=== PATIENT | female | born 1990 | race Caucasian/White ===

== ENCOUNTER 2020-04-22 08:11 | Day surgery (SDC) | payer OTHER ==
[2020-04-22] MEDS ORDERED: NEXIUM 24HR20 MG PO (09:24)
== END 2020-04-22 11:20 | disposition home or self-care (01) ==
LOC: AMB-ENDOS 08:11
PROVIDERS: ATTEND Surgery
DX: K29.60 Other gastritis without bleeding (principal); K44.9 Diaphragmatic hernia without obstruction or gangrene

== ENCOUNTER 2024-04-29 13:26 | Outpatient (CLI) | payer OTHER ==
[~2024-04-29 13:26] MED LIST: NEXIUM 24HR20 MG PO
== END 2024-04-29 13:27 | disposition home or self-care (01) ==
LOC: PRENATAL 13:26
PROVIDERS: ATTEND Obstetrics & Gynecology Maternal & Fetal Medicine
DX: O36.80X0 Pregnancy with inconclusive fetal viability, not applicable or unspecified (principal); Z36.82 Encounter for antenatal screening for nuchal translucency; O34.219 Maternal care for unspecified type scar from previous cesarean delivery; Z3A.13 13 weeks gestation of pregnancy